=== PATIENT | male | born 1965 | race Caucasian/White ===

== ENCOUNTER 2017-04-28 15:05 | Emergency (ER) | payer SELFPAY ==
--- NOTE | 2017-05-01 09:47 | ER ---
ADMIT: 04/28/2017 RM/LOC: ER [facility] MR#: [id number] [address] [id number] LYDIA MCCORMACK [address] [place] [address] Emergency Room Report SEX: M AGE: 52 : 1965 DATE: 04/28/2017 ADDENDUM: A 52-year-old white male coming in after falling. He has pain in his forearm. Initial forearm x-ray was negative, though there was a question distally about a distal radius fracture. We x-rayed the wrist, and he did have a distal nondisplaced intra-articular radial fracture. We put a short arm splint on him. He was instructed he needs to see the Ortho. Instructed to use a sling, ice, elevate. Motrin 3 to 4 every 6 hours p.r.n. pain. CONDITION ON DISCHARGE: Improved. See Ortho in 1 week. Brandon De La O MD/ raulito JOB #: [id number] CC: Brandon De La O MD, Attending Physician Efra Nazario MD, Family Physician
== END 2017-04-28 17:18 | disposition home or self-care (01) ==
LOC: ER 15:05
PROC: 2W3DX1Z Immobilization of Left Lower Arm using Splint (ICD-10-PCS; principal; 2017-04-28)
DX: S52.572A Other intraarticular fracture of lower end of left radius, initial encounter for closed fracture (principal); F17.210 Nicotine dependence, cigarettes, uncomplicated; W19.XXXA Unspecified fall, initial encounter; Y92.009 Unspecified place in unspecified non-institutional (private) residence as the place of occurrence of the external cause